=== PATIENT | female | born 1940 | race Hispanic/Latino ===

== ENCOUNTER 2018-03-02 17:43 | Emergency (ER) | payer MEDICARE, OTHER ==
[2018-03-02 17:55] VITALS: RESP 16
--- NOTE | 2018-03-02 19:38 | ED PDOC ---
HPI: Psych/Substance Abuse Time Seen by Provider: 03/02/18 18:31 Chief Complaint (Nursing): Anxiety Chief Complaint (Provider): Jittery and anxiety History Per: Patient, Family History/Exam Limitations: no limitations Onset/Duration Of Symptoms: Days Current Symptoms Are (Timing): Still Present Associated Symptoms: Anxiety, Agitation. denies: Depression, Suicidal Thoughts, Suicidal Plan Involuntary Hold By: None Additional History Per: Additional Complaint(s): 78 yo F presents with feeling of being jittery and anxious for 4 days since stopping Xanax and beginning Valium. Pt states she has had anxiety for years since the of her sons. For years, the patient has taken Xanax that was prescribed to her friends. She states she takes whatever someone has available and does not know the actual dosage (describes small, peach colored pills). 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 Pt states the jitteriness became worsened today prompting her to come to the ED. During evaluation, it is noted that the patient has a wet, productive cough. She states she does not know how long she has had this cough. Denies fever, weakness, shortness of breath, chest pain, or other symptoms. PMD: Dr. Rosales Past Medical History Vital Signs: Last Vital Signs Temp 98.2 F 03/02/18 17:51 Pulse 97 H 03/02/18 17:51 Resp 16 03/02/18 17:51 BP 167/97 H 03/02/18 17:51 Pulse Ox 94 L 03/02/18 17:51 - Medical History PMH: Anxiety - Family History Family History: States: Unknown Family Hx - Home Medications Home Medications: Ambulatory Orders Medication Instructions Recorded Sulfamethoxazole/Trimethoprim 1 tab PO BID #6 tab 03/02/18 [Bactrim DS 800 mg-160 mg] - Allergies Allergies/Adverse Reactions: Allergies Allergy/AdvReac Type Severity Reaction Status Date / Time No Known Allergies Allergy Verified 03/02/18 17:51 Review of Systems Constitutional: Negative for: Fever, Chills, Weakness, Malaise, Weight loss Eyes: Negative for: Pain Cardiovascular: Negative for: Chest Pain, Palpitations Respiratory: Positive for: Cough. Negative for: Shortness of Breath, Hemoptysis Gastrointestinal: Negative for: Nausea, Vomiting, Abdominal Pain, Diarrhea Genitourinary Female: Negative for: Dysuria Musculoskeletal: Negative for: Neck Pain, Shoulder Pain, Back Pain Skin: Negative for: Rash Neurological: Negative for: Weakness, Numbness, Incoordination Psych: Positive for: Anxiety Physical Exam - Physical Exam Appears: Positive for: Well, Non-toxic, No Acute Distress Head Exam: Positive for: ATRAUMATIC, NORMAL INSPECTION Skin: Positive for: Normal Color, Warm, Dry Neck: Positive for: Normal, Painless ROM, Supple Cardiovascular/Chest: Positive for: Regular Rate, Rhythm, Chest Non Tender, Edema Respiratory: Positive for: Crackles Gastrointestinal/Abdominal: Positive for: Normal Exam, Bowel Sounds Back: Positive for: Normal Inspection Extremity: Positive for: Normal ROM Lymphatic: Positive for: Normal Exam Neurologic/Psych: 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 Negative for: Motor/Sensory Deficits - Laboratory Results Result Diagrams: 03/02/18 20:00 03/02/18 20:00 - ECG O2 Sat by Pulse Oximetry: 94 Medical Decision Making Medical Decision Makin yo F with most likely Xanax withdrawl undertreated with Valium. Will give dose of Valium and workup for pulmonary infectious process due to wet cough and cardiac workup based of feeling jittery and anxious. -CXR -Labs -Valium PO -reassess pt 9:16pm Labs show a mild anemia without indication for transfusion. UA shows UTI. Pt given first dose of antibiotics in the ED. Discussed need for PMD follow up with anemia and medication adjustment with PMD. Pt states she does not have enough pills of Valium to get through until her next PMD appointment. Pt able to confirm this by showing pill bottle. Pt to be given 2 days worth of Valium to bridge until the PMD appointment. Pt requesting sleep medication at this time which was not provided and she is instructed to follow up with PMD regarding sleeping pills. Disposition - Clinical Impression Clinical Impression: Anxiety, Urinary tract infection - Disposition Disposition: Routine/Home Disposition Time: 21:17 Condition: IMPROVED Additional Instructions: Follow up with primary doctor to discuss anemia, medication adjustments, and follow up of urinary tract infection. Take medications as prescribed for urinary tract infection. Return to the emergency department if you develop worsened pain, dizziness, trouble breathing, or other new symptoms. Prescriptions: Sulfamethoxazole/Trimethoprim [Bactrim DS 800 mg-160 mg] 1 tab PO BID #6 tab Forms: [employer] (Fijian) Print Language: SPANISH
[2018-03-02 20:05] LABS: BASO # 0.1 K/uL (0.0-0.2); BASO % 1.2 % (0.0-2.0); EOS # 0.1 K/uL (0.0-0.7); EOS % 1.5 % (0.0-4.0); HEMOGLOBIN 10.2 g/dL (12.0-16.0); LYMPH # 1.5 K/uL (1.0-4.3); LYMPH % 19.7 % (20.0-40.0); MEAN CELL VOLUME 71.9 fl (81.0-99.0); MEAN CORPUSCULAR HEMOGLOBIN 22.5 pg (27.0-31.0); MEAN CORPUSCULAR HGB CONC 31.3 g/dL (33.0-37.0); MEAN PLATELET VOLUME 7.6 fl (7.2-11.7); MONO # 0.7 K/uL (0.0-0.8); MONO % 9.5 % (0.0-10.0); NEUT # 5.1 K/uL (1.8-7.0); NEUT % 68.1 % (50.0-75.0); RBC 4.54 Mil/uL (3.80-5.20); RED CELL DISTRIBUTION WIDTH 19.7 % (11.5-14.5); WHITE BLOOD COUNT 7.5 K/uL (4.8-10.8)
[2018-03-02 20:09] LABS: URINE BACTERIA RARE (<OCC); URINE BILIRUBIN NEGATIVE (NEGATIVE); URINE BLOOD SMALL (NEGATIVE); URINE CLARITY CLEAR (Clear); URINE COLOR STRAW (YELLOW); URINE GLUCOSE (UA) NEG (Normal); URINE LEUKOCYTE ESTERASE LARGE Leu/uL (Negative); URINE PROTEIN NEGATIVE (NEGATIVE); URINE UROBILINOGEN 0.2-1.0 mg/dL (0.2-1.0)
[2018-03-02 20:13] LABS: BLOOD UREA NITROGEN 11 mg/dl (7-17); CALCIUM 9.5 mg/dL (8.4-10.2); GFR NON-AFRICAN AMERICAN > 60
[2018-03-02] MEDS ORDERED: Tmp-Smz 800 mg-160 mg DS Tab PO STA (21:13)
[2018-03-02] MEDS ORDERED: Tmp-Smz 800 mg-160 mg DS Tab ONE (21:19)
[2018-03-02 22:09] VITALS: BP 144/77; PULSE 81; TEMP 97.9; O2SAT 95
--- NOTE | 2018-03-03 11:09 | RAD ---
Date of service: 03/02/2018 HISTORY: possible admission COMPARISON: No prior. FINDINGS: LUNGS: No active pulmonary disease. PLEURA: No significant pleural effusion identified, no pneumothorax apparent. CARDIOVASCULAR: No aortic atherosclerotic calcification present. Normal cardiac size. No pulmonary vascular congestion. OSSEOUS STRUCTURES: No significant abnormalities. VISUALIZED UPPER ABDOMEN: Normal. OTHER FINDINGS: None. IMPRESSION: No active disease.
--- NOTE | 2018-03-03 21:14 | CARD ---
APPROVED REPORT Date of service: 03/02/2018 EKG Measurement Heart [id number] <Conclusion> Normal sinus rhythm Normal ECG
== END 2018-03-02 21:55 | disposition home or self-care (01) ==
LOC: H.ER 17:43
DX: N39.0 Urinary tract infection, site not specified (principal); F41.9 Anxiety disorder, unspecified

== ENCOUNTER 2018-03-19 05:04 | Emergency (ER) | payer MEDICARE, OTHER ==
[2018-03-19 05:33] VITALS: TEMP 97.9; O2SAT 99
[2018-03-19] MEDS ORDERED: Alum-Mag Hydrox-Simethicone Susp (30 mL) PO ONE (05:37)
[2018-03-19] MEDS ORDERED: Albuterol-Ipratrop 3 mg / 0.5 (3 ml) UD INH STA (05:37)
--- NOTE | 2018-03-19 05:52 | ED PDOC ---
HPI: Psych/Substance Abuse Time Seen by Provider: 03/19/18 05:24 Chief Complaint (Nursing): GI Problem Additional Complaint(s): Hx of anxiety, smoking presenting with anxiety, abdominal pain. States she was feeling anxious tonight and took 2 tablets of "Calm" brand medicine and half of a 0.25mg xanax tablet. States she felt like the pills were stuck in her chest and felt a burning sensation, worse with lying flight. Denies nausea, vomiting, fevers, chills. Denies shortness of breath. Patient states she feels very nervous. PMD: Dr. Meyers Past Medical History Reviewed: Historical Data, Nursing Documentation, Vital Signs Vital Signs: Last Vital Signs Temp 97.9 F 03/19/18 05:31 Pulse 86 03/19/18 05:31 Resp 16 03/19/18 05:31 BP 144/80 03/19/18 05:31 Pulse Ox 99 03/19/18 05:31 - Medical History PMH: Anxiety - Family History Family History: States: Unknown Family Hx - Home Medications Home Medications: Ambulatory Orders Medication Instructions Recorded Diazepam [Valium] 2 mg PO TID #6 tablet 03/02/18 Sulfamethoxazole/Trimethoprim 1 tab PO BID #6 tab 03/02/18 [Bactrim DS 800 mg-160 mg] Hydroxyzine HCl 25 mg PO BID PRN #30 tablet 03/19/18 - Allergies Allergies/Adverse Reactions: Allergies Allergy/AdvReac Type Severity Reaction Status Date / Time No Known Allergies Allergy Verified 03/02/18 17:51 Review of Systems ROS Statement: Except As Marked, All Systems Reviewed And Found Negative Gastrointestinal: Positive for: Abdominal Pain Psych: Positive for: Anxiety. Negative for: Depression Physical Exam - Reviewed Nursing Documentation Reviewed: Yes Vital Signs Reviewed: Yes - Physical Exam Appears: Positive for: Well, Non-toxic, No Acute Distress Head Exam: Positive for: ATRAUMATIC, NORMAL INSPECTION, NORMOCEPHALIC Skin: Positive for: Normal Color, Warm, DRY Eye Exam: Positive for: EOMI, Normal appearance, PERRL ENT: Positive for: Normal ENT Inspection Neck: Positive for: Normal, Painless ROM Cardiovascular/Chest: Positive for: Regular Rate, Rhythm Respiratory: Positive for: Wheezing. Negative for: Decreased Breath Sounds, Accessory Muscle Use, Crackles, Rales, Rhonchi, Stridor, Respiratory Distress Gastrointestinal/Abdominal: Positive for: Normal Exam, Soft Back: Positive for: Normal Inspection Extremity: Positive for: Normal ROM Neurologic/Psych: Positive for: Alert, Oriented - ECG O2 Sat by Pulse Oximetry: 99 Pulse Ox Interpretation: Normal Medical Decision Making Medical Decision MakinAM Patient presenting with anxiety, epigastric burning pain --Patient very anxious appearing, nonfocal abdominal and chest exam --EKG shows NSR with no ST/T wave changes --Will give GI cocktail for likely GERD/gastritis --Will give duoneb for wheezing --Will re-evaluate --Will continue to closely monitor 700AM --Patient is feeling better, no longer having chest pain --Anxiety is better after receiving hydroxyzine --Will give prescription and have her followup with Dr. Meyers --Well appearing, ambulatory, steady gait, tolerating PO upon discharge Disposition - Clinical Impression Clinical Impression: Anxiety, Gastritis - Patient ED Disposition Is Patient to be Admitted: No - Disposition Referrals: Radhames Meyers MD [Staff Provider] - Disposition: Routine/Home Disposition Time: 07:06 Condition: STABLE Prescriptions: Hydroxyzine HCl 25 mg PO BID PRN #30 tablet PRN Reason: Anxiety Instructions: Gastritis, Anxiety, Adult (DC) Forms: [employer] (U[place]ayan)
[2018-03-19 10:40] VITALS: BP 133/67; PULSE 80; RESP 18
--- NOTE | 2018-03-19 19:05 | CARD ---
APPROVED REPORT Date of service: 03/19/2018 EKG Measurement Heart [id number] <Conclusion> Normal sinus rhythm Normal ECG
== END 2018-03-19 09:23 | disposition home or self-care (01) ==
LOC: H.ER 05:04
DX: K29.70 Gastritis, unspecified, without bleeding (principal); F41.9 Anxiety disorder, unspecified